=== PATIENT | male | born 1945 | race Caucasian/White ===

== ENCOUNTER → 2018-08-08 | Outpatient (CLI) | payer OTHER | LOC: FIMAGING 10:43 | PROVIDERS: ATTEND Orthopaedic Surgery Sports Medicine | DX: M75.112 Incomplete rotator cuff tear or rupture of left shoulder, not specified as traumatic (principal); M75.82 Other shoulder lesions, left shoulder; M75.22 Bicipital tendinitis, left shoulder; M19.012 Primary osteoarthritis, left shoulder ==